=== PATIENT | female | born 1960 | race African-American/Black ===

== ENCOUNTER 2016-11-10 06:05 | Day surgery (SDC) | payer BC ==
--- NOTE | ~2016-11-10 | EGD ---
EGD REPORT [facility] [address] [place]. [address] NAME: MELVI SHAY : 56 STATUS : REG [facility]#: [id number] AGE: 56 ADM/REG DATE : 11/10/16 MR#: [id number] REPORT SERV DATE: 11/10/16 DICTATED BY: SANA CABRERA DATE: 11/10/16 REPORT STATUS : Draft TRANSCRIBED BY: [facility] DATE: 11/10/16 [facility] Patient Name: Melvi Shay Date of : 1960 Attending MD: SANA CABRERA, Procedure Date No Time: 11/10/2016 Procedure: Upper EUS Indications: Dilated pancreatic duct on CT scan Referring MD: CODY HI Medicines: Monitored Anesthesia Care Complications: No immediate complications. Estimated blood loss: None. Procedure: Pre-Anesthesia Assessment: - ASA Grade Assessment: III - A patient with severe systemic disease. After obtaining informed consent, the endoscope was passed under direct vision. Throughout the procedure, the patient's blood pressure, pulse, and oxygen saturations were monitored continuously. The Endoscope was introduced through the mouth, and advanced to the second part of duodenum. The GIF [id number] was introduced through the mouth, and advanced to the second part of duodenum. Findings: Endoscopic Finding : Patchy candidiasis was found in the lower third of the esophagus. Biopsies were taken with a cold forceps for histology. Verification of patient identification for the specimen was done. Estimated blood loss was minimal. The exam of the esophagus was otherwise normal. Medium-sized scars were found in the prepyloric region of the stomach. Patchy mild inflammation characterized by erythema was found in the entire examined stomach. Biopsies were taken with a cold forceps for histology. Verification of patient identification for the specimen was done. Estimated blood loss was minimal. The exam of the stomach was otherwise normal. The examined duodenum was endoscopically normal. Endosonographic Finding : The pancreatic duct had a dilated endosonographic appearance in the pancreatic head. The pancreatic duct measured up to 4 mm in diameter. Endosonographic imaging of the pancreas showed no cyst/pseudocyst, no mass, no pancreas divisum and no parenchymal abnormalities. There was no sign of significant endosonographic abnormality in the common bile duct. No lymphadenopathy seen. EGD REPORT [facility] [id number] [place]. [address] NAME: MELVI SHAY : 56 STATUS : REG [facility] PAT#: [id number] AGE: 56 ADM/REG DATE : 11/10/16 MR#: [id number] REPORT SERV DATE: 11/10/16 DICTATED BY: SANA CABRERA DATE: 11/10/16 REPORT STATUS : Draft TRANSCRIBED BY: [employer] DATE: 11/10/16 There was no sign of significant endosonographic abnormality in the examined duodenum. Endosonographic images of the stomach were unremarkable. There was no sign of significant endosonographic abnormality in the esophagus. Impression: - Monilial esophagitis. Biopsied. - Scar in the prepyloric region of the stomach. - Gastritis. Biopsied. - Normal examined duodenum. - The pancreatic duct had a dilated endosonographic appearance in the pancreatic head. The pancreatic duct measured up to 4 mm in diameter. - There was no sign of significant pathology in the common bile duct. - There was no sign of significant pathology in the examined duodenum. - Endosonographic images of the stomach were unremarkable. - There was no sign of significant pathology in the esophagus. Recommendation: - Return to previous diet. - Continue present medications. - Return to previous diet. - Await path results. Procedure Code(s): --- Professional --- 20815, Esophagogastroduodenoscopy, flexible, transoral; with endoscopic ultrasound examination, including the esophagus, stomach, and either the duodenum or a surgically altered stomach where the jejunum is examined distal to the anastomosis Diagnosis Code(s): --- Professional --- B37.81, Candidal esophagitis K31.89, Other diseases of stomach and duodenum K29.70, Gastritis, unspecified, without bleeding R93.3, Abnormal findings on diagnostic imaging of other parts of digestive tract K86.8, Other specified diseases of pancreas CPT copyright 2013 [employer]. All rights reserved. The codes documented in this report are preliminary and upon freelance programmer/app developer review may be revised to meet current compliance requirements. EGD REPORT [facility] [address] [place] [address] NAME: MELVI SHAY WILFREDO : 56 STATUS : REG [facility]#: [id number] AGE: 56 ADM/REG DATE : 11/10/16 MR#: [id number] REPORT SERV DATE: 11/10/16 DICTATED BY: SANA CABRERA DATE: 11/10/16 REPORT STATUS : Draft TRANSCRIBED BY: [employer] DATE: 11/10/16 SANA CABRERA 11/10/2016 7:39 AM Number of Addenda: 0 Note Initiated On: 11/10/2016 7:10 AM Scope Withdrawal Time 0 hours 0 minutes 0 seconds [facility] [place] [id number]
[~2016-11-10 06:05] MED LIST: BLOOD PRESSURE MED; GOODY'S BODY P1 EACH PO; HYDROCHLOROT25 MG PO; NORV5 PO; PRILO PO; PRIN20 PO
[2016-11-10 06:48] LABS: CALCIUM, SERUM 10.1 MG/DL (8.5-10.4); CHLORIDE, SERUM 105 MMOL/L (96-112); CO2 (CARBON DIOXIDE) 27 MMOL/L (24-34); CREATININE 1.09 MG/DL (0.55-1.02); GFR AFRICAN AMERICAN 65 ML/MIN (>=60); GFR NON AFRICAN AMERICAN 56 ML/MIN (>=60); GLUCOSE, SERUM 100 MG/DL (60-99); POTASSIUM, SERUM 3.3 MMOL/L (3.5-5.3); SODIUM, SERUM 141 MMOL/L (135-148)
[2016-11-10 06:51] LABS: BUN (BLOOD UREA NITROGEN) 22 MG/DL (6-23)
== END 2016-11-10 23:59 | disposition home health service (06) ==
LOC: DMU 06:05
PROVIDERS: Anesthesiology; Internal Medicine Gastroenterology
PROC: BD41ZZZ Ultrasonography of Esophagus (ICD-10-PCS; 2016-11-10)
PROC: 0DB38ZX Excision of Lower Esophagus, Via Natural or Artificial Opening Endoscopic, Diagnostic (ICD-10-PCS; 2016-11-10)
PROC: 0DB68ZX Excision of Stomach, Via Natural or Artificial Opening Endoscopic, Diagnostic (ICD-10-PCS; 2016-11-10)
PROC: 0F7D8ZZ Dilation of Pancreatic Duct, Via Natural or Artificial Opening Endoscopic (ICD-10-PCS; 2016-11-10)
PROC: 0DJ08ZZ Inspection of Upper Intestinal Tract, Via Natural or Artificial Opening Endoscopic (ICD-10-PCS; principal; 2016-11-10 10:00)
DX: K29.50 Unspecified chronic gastritis without bleeding (principal); K31.7 Polyp of stomach and duodenum; K21.0 Gastro-esophageal reflux disease with esophagitis; B37.81 Candidal esophagitis; I10 Essential (primary) hypertension; J44.9 Chronic obstructive pulmonary disease, unspecified; F17.210 Nicotine dependence, cigarettes, uncomplicated; D64.9 Anemia, unspecified; Z98.890 Other specified postprocedural states; Z90.49 Acquired absence of other specified parts of digestive tract
CPT/HCPCS: 80048; 88305; 88312; C1725